=== PATIENT | male | born 2000 | race African-American/Black ===

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

== ENCOUNTER 2021-01-24 14:18 | Emergency (ER) | payer MEDICAID ==
[~2021-01-24] VITALS: Ht 175.3 cm; Wt 70.0 kg
[2021-01-24 14:34] VITALS: BP 124/68
[2021-01-24] MEDS ORDERED: MAGNESIUM/ALUMINUM HYDROXIDE/SIMETHICONE 30ML UDC PO STA (15:33)
[2021-01-24 16:24] LABS: CHLORIDE 106 mEq/L (98-107)
[2021-01-24 16:28] LABS: EOSINOPHILS % 0.7 % (0.0-5.0); HEMATOCRIT. 43.5 % (42.0-52.0); HEMOGLOBIN. 14.8 g/dL (14.0-18.0); LYMPHOCYTES % 36.3 % (20.0-50.0); MEAN CORPUSCULAR HEMOGLOBIN 28.3 pg (28.0-32.0); MEAN CORPUSCULAR VOLUME 83.4 fL (80.0-94.0); MEAN PLATELET VOLUME 9.1 fl (7.4-10.4); MONOCYTES % 6.7 % (2.0-8.0); NEUTROPHILS % 55.3 % (40.0-76.0); PLATELET 245 x1000/uL (130-400); RED BLOOD CELL COUNT 5.22 mill/uL (4.7-6.1); RED CELL DISTRIBUTION WIDTH 13.3 % (11.6-14.6)
== END 2021-01-24 17:07 | disposition home or self-care (01) ==
LOC: ER 14:18
DX: R10.13 Epigastric pain (principal); R03.0 Elevated blood-pressure reading, without diagnosis of hypertension
CPT/HCPCS: 36415; 74018; 80053; 85025; 93005; 99285

== ENCOUNTER 2021-02-26 12:56 | Emergency (ER) | payer MEDICAID ==
[~2021-02-26] VITALS: Ht 175.3 cm; Wt 82.2 kg
[2021-02-26] MEDS ORDERED: IBUPROFEN 400MG TABLET PO ONE (14:45)
[2021-02-26] MEDS ORDERED: IBUP-2028 MT (16:15)
[2021-02-26 16:31] VITALS: BP 121/84
== END 2021-02-26 16:30 | disposition home or self-care (01) ==
LOC: ER 12:56
DX: M25.562 Pain in left knee (principal); M54.5 Low back pain; R03.0 Elevated blood-pressure reading, without diagnosis of hypertension
CPT/HCPCS: 72100; 73562; 99283

== ENCOUNTER 2022-02-27 17:40 | Emergency (ER) | payer MEDICAID ==
[~2022-02-27] VITALS: Ht 175.3 cm; Wt 82.0 kg
[~2022-02-27 17:40] MED LIST: IBUP-2028 MT
[2022-02-27] MEDS ORDERED: IBUPROFEN 400MG TABLET PO ONE (21:45)
[2022-02-27] MEDS ORDERED: IBUP-2028 MT (22:29)
[2022-02-27 22:44] VITALS: BP 108/78
== END 2022-02-27 22:44 | disposition home or self-care (01) ==
LOC: ER 17:40
DX: S63.591A Other specified sprain of right wrist, initial encounter (principal); W22.8XXA Striking against or struck by other objects, initial encounter; Y93.89 Activity, other specified; Y92.89 Other specified places as the place of occurrence of the external cause
CPT/HCPCS: 29125; 73110; 99283

== ENCOUNTER 2024-03-10 00:52 | Emergency (ER) | payer BC, MEDICAID ==
[~2024-03-10] VITALS: Ht 182.9 cm; Wt 69.0 kg
[2024-03-10 00:54] VITALS: O2SAT 99
[2024-03-10] MEDS ORDERED: KETOROLAC 30MG/ML VIAL IM ONE (01:30)
[2024-03-10 01:52] LABS: BASOPHILS % 1.2 % (0.0-2.0); EOSINOPHILS % 1.1 % (0.0-5.0); HEMATOCRIT. 40.8 % (42.0-52.0); HEMOGLOBIN. 13.6 g/dL (14.0-18.0); LYMPHOCYTES % 42.8 % (20.0-50.0); MEAN CORPUSCULAR HEMOGLOBIN 28.1 pg (28.0-32.0); MEAN CORPUSCULAR HGB CONC 33.2 g/dL (31.0-37.0); MEAN CORPUSCULAR VOLUME 84.7 fL (80.0-94.0); MEAN PLATELET VOLUME 8.6 fl (7.4-10.4); MONOCYTES % 7.4 % (2.0-8.0); NEUTROPHILS % 47.5 % (40.0-76.0); PLATELET 216 x1000/uL (130-400); RED BLOOD CELL COUNT 4.82 mill/uL (4.7-6.1); RED CELL DISTRIBUTION WIDTH 13.2 % (11.6-14.6); WHITE BLOOD COUNT 6.2 x1000/uL (4.5-11.0)
[2024-03-10] MEDS ORDERED: ACETAMINOPHEN 325MG TABLET PO ONE (02:00)
[2024-03-10] MEDS ORDERED: IBUPROFEN 600MG TABLET PO ONE (02:00)
[2024-03-10 02:04] LABS: CARBON DIOXIDE 28 mEq/L (21-32); CHLORIDE 105 mEq/L (98-107); POTASSIUM 3.5 mEq/L (3.5-5.1); SODIUM 140 mEq/L (136-145)
[2024-03-10 02:05] LABS: CALCIUM 10.1 mg/dL (8.7-10.4)
[2024-03-10 02:09] LABS: GLUCOSE 77 mg/dL (70-105)
[2024-03-10 02:10] LABS: TROPONIN I HIGH SENSITIVITY 5 ng/L (3.0-53); UREA NITROGEN BLOOD 8 mg/dL (9-23)
[2024-03-10 02:11] LABS: ALANINE AMINOTRANSFERASE 11 IU/L (10-49)
[2024-03-10] MEDS: KETOROLAC 30MG/ML VIAL IM NR (02:11)
[2024-03-10 02:12] LABS: ASPARTATE AMINOTRANSFERASE 18 IU/L (<34); BILIRUBIN TOTAL 0.8 mg/dL (0.1-1.0); PROTEIN TOTAL 7.6 g/dL (6.0-8.3)
[2024-03-10 02:16] VITALS: BP 132/78; PULSE 87; RESP 16
[2024-03-10] MEDS: IBUPROFEN 600MG TABLET PO NR (02:16)
[2024-03-10 02:17] VITALS: TEMP 98.3
[2024-03-10] MEDS: ACETAMINOPHEN 325MG TABLET PO NR (02:17)
[2024-03-10 02:45] LABS: ERYTHROCYTE SEDIMENTATION RATE 2 mm/hr (0-15)
== END 2024-03-10 02:51 | disposition left against medical advice (07) ==
LOC: ER 00:52
DX: R07.9 Chest pain, unspecified (principal)
CPT/HCPCS: 36415; 71045; 80053; 84484; 85025; 85651; 86141; 93005; 99285